=== PATIENT | female | born 1950 | race Caucasian/White ===

== ENCOUNTER 2016-12-21 17:40 | Inpatient (IN) | payer OTHER, MEDICARE ==
[~2016-12-21] VITALS: Ht 167.6 cm; Wt 78.2 kg
[2016-12-21] MEDS ORDERED: IOHEXOL 350 MG/ML 10 ML VIAL (for RAD DIAG) IVCONTRAST ONE (17:41)
[2016-12-21 17:53] VITALS: O2SAT 96
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
[2016-12-21 18:05] LABS: AUTOMATED NEUTROPHIL # 8.9 TH/MM3 (1.8-7.7); BASOPHIL # 0.1 TH/MM3 (0-0.2); BASOPHIL % 0.4 % (0.0-2.0); EOSINOPHIL # 0.1 TH/MM3 (0-0.4); EOSINOPHIL % 0.9 % (0.0-4.0); HEMATOCRIT 41.9 % (35.0-46.0); HEMO FLAGS DIFF FINAL; LYMPH % 30.4 % (9.0-44.0); LYMPHOCYTE # 4.6 TH/MM3 (1.0-4.8); MEAN CELL VOLUME 89.6 FL (80.0-100.0); MEAN CORPUSCULAR HEMOGLOBIN 29.5 PG (27.0-34.0); MEAN CORPUSCULAR HGB CONC 32.9 % (32.0-36.0); MONO % 8.8 % (0.0-8.0); NEUT % 59.5 % (16.0-70.0); PLATELET COUNT 244 TH/MM3 (150-450); RED BLOOD COUNT 4.68 MIL/MM3 (4.00-5.30); RED CELL DISTRIBUTION WIDTH 13.9 % (11.6-17.2)
[2016-12-21 18:09] LABS: I-STAT POTASSIUM 3.8 MMOL/L (3.5-4.9)
[2016-12-21 18:15] LABS: APTT (PATIENT) 23.8 SEC (24.3-30.1); PROTHROMBIN TIME - PATIENT 10.7 SEC (9.8-11.6)
[2016-12-21 18:30] VITALS: BP 128/60; PULSE 95; RESP 20; O2SAT 98
[2016-12-21] MEDS ORDERED: HYDROmorphone HCL PF 1 MG/ML VIAL IVP PRN ×2 (18:30)
[2016-12-21] MEDS ORDERED: CHLORHEXIDINE GLUCONATE 2 % 1 PACK (2 CLOTHS) TOP PRN (18:30)
[2016-12-21] MEDS ORDERED: MISCELLANEOUS NURSING INFORMATION XX SCH (18:30)
[2016-12-21] MEDS ORDERED: HYDROmorphone HCL PF 1 MG/ML VIAL IV PUSH ONE (18:30)
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
[2016-12-21 19:54] VITALS: BP 128/60; PULSE 100; RESP 18; O2SAT 100
[2016-12-21 20:25] VITALS: BP 140/79; PULSE 112; RESP 18; TEMP 99.9; O2SAT 97
[2016-12-21] MEDS: MAGNESIUM HYDROXIDE SUSP 30 ML CUP PO SCH (21:00)
[2016-12-21] MEDS: LACTATED RINGER'S 1000 ML INJ 1,000 ML IV SCH (21:31)
[2016-12-21] MEDS: DOCUSATE SODIUM 100 MG CAP PO SCH (21:38)
[2016-12-21] MEDS: METHOCARBAMOL 500 MG TAB PO SCH (21:38)
[2016-12-21] MEDS: FAMOTIDINE 20 MG TAB PO SCH (21:38)
[2016-12-21] MEDS: LIDOCAINE HCL 5% PATCH T-DERMAL SCH (21:41)
[2016-12-22 00:20] VITALS: BP 117/66; PULSE 90; RESP 18; TEMP 99.4; O2SAT 98
[2016-12-22 03:35] VITALS: BP 137/79; PULSE 87; RESP 17; TEMP 96.7; O2SAT 98
[2016-12-22] MEDS ORDERED: CHLORHEXIDINE GLUCONATE 2 % 1 PACK (2 CLOTHS) TOP SCH (04:00)
[2016-12-22] MEDS: METHOCARBAMOL 500 MG TAB PO SCH ×3 (05:49→21:06)
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
[2016-12-22 07:39] VITALS: BP 110/69; PULSE 80; RESP 18; TEMP 96.7; O2SAT 95
[2016-12-22] MEDS: LACTATED RINGER'S 1000 ML INJ 1,000 ML IV SCH ×2 (08:03→20:06)
[2016-12-22] MEDS: DOCUSATE SODIUM 100 MG CAP PO SCH ×2 (08:27→21:06)
[2016-12-22] MEDS: REMOVE OLD LIDOCAINE PATCH T-DERMAL SCH (08:29)
[2016-12-22] MEDS ORDERED: MAGN400S PO (08:41)
[2016-12-22] MEDS ORDERED: DOCU1CAP39 PO (08:41)
[2016-12-22 08:52] LABS: AUTOMATED NEUTROPHIL # 5.6 TH/MM3 (1.8-7.7); BASOPHIL % 0.3 % (0.0-2.0); EOSINOPHIL # 0.1 TH/MM3 (0-0.4); EOSINOPHIL % 0.7 % (0.0-4.0); HEMATOCRIT 39.8 % (35.0-46.0); HEMO FLAGS DIFF FINAL; LYMPH % 30.3 % (9.0-44.0); LYMPHOCYTE # 2.9 TH/MM3 (1.0-4.8); MEAN CELL VOLUME 89.5 FL (80.0-100.0); MEAN CORPUSCULAR HEMOGLOBIN 29.7 PG (27.0-34.0); MEAN CORPUSCULAR HGB CONC 33.1 % (32.0-36.0); MONO % 11.4 % (0.0-8.0); NEUT % 57.3 % (16.0-70.0); PLATELET COUNT 210 TH/MM3 (150-450); RED BLOOD COUNT 4.44 MIL/MM3 (4.00-5.30); RED CELL DISTRIBUTION WIDTH 14.3 % (11.6-17.2); WHITE BLOOD COUNT 9.7 TH/MM3 (4.0-11.0)
[2016-12-22 09:12] LABS: ANION GAP 8 MEQ/L (5-15); AST (GOT) 31 U/L (15-37); BICARBONATE 24.4 MEQ/L (21.0-32.0); BLOOD UREA NITROGEN 7 MG/DL (7-18); CHLORIDE 105 MEQ/L (98-107); GLOMERULAR FILTRATION RATE 44 ML/MIN (>89); POTASSIUM 3.8 MEQ/L (3.5-5.1); SODIUM (NA) 137 MEQ/L (136-145)
[2016-12-22 09:14] LABS: ALT (GPT) 19 U/L (10-53)
[2016-12-22 09:16] LABS: ALKALINE PHOSPHATASE 93 U/L (45-117); TOTAL BILIRUBIN ADULT 0.5 MG/DL (0.2-1.0)
[2016-12-22] MEDS ORDERED: oxyCODONE/ACETAMINOPHEN 5 MG/325 MG TAB PO PRN (11:30)
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
[2016-12-22 11:46] VITALS: BP 114/79; PULSE 74; RESP 18; TEMP 97.5; O2SAT 94
[2016-12-22] MEDS: oxyCODONE/ACETAMINOPHEN 10 MG/325 MG TAB PO PRN ×2 (12:29→19:14)
[2016-12-22] MEDS: GABAPENTIN 300 MG CAP PO SCH ×2 (12:29→17:40)
[2016-12-22] MEDS: ONDANSETRON HCL 4 MG/2 ML VIAL IV PUSH PRN ×2 (14:56→21:01)
[2016-12-22 16:00] VITALS: BP 94/53; PULSE 80; RESP 18; TEMP 96.1; O2SAT 93
[2016-12-22] MEDS ORDERED: NITR1SUB3 SL (16:41)
[2016-12-22] MEDS ORDERED: TIZA4CAP3 PO (16:43)
[2016-12-22] MEDS ORDERED: DIPH25CA PO (16:44)
[2016-12-22 20:00] VITALS: BP 107/79; PULSE 81; RESP 16; TEMP 97.7; O2SAT 97
[2016-12-22] MEDS ORDERED: traZODone HCL 50 MG TAB PO SCH (21:00)
[2016-12-22] MEDS: FAMOTIDINE 20 MG TAB PO SCH (21:06)
[2016-12-22] MEDS: LIDOCAINE HCL 5% PATCH T-DERMAL SCH (21:06)
[2016-12-22] MEDS: MAGNESIUM HYDROXIDE SUSP 30 ML CUP PO SCH (21:53)
[2016-12-23] VITALS: BP 95/41; PULSE 79; RESP 18; TEMP 98.7; O2SAT 95
[2016-12-23 04:00] VITALS: BP 107/59; PULSE 65; RESP 18; TEMP 96; O2SAT 92
[2016-12-23] MEDS: METHOCARBAMOL 500 MG TAB PO SCH ×2 (06:28→13:17)
[2016-12-23] MEDS: LACTATED RINGER'S 1000 ML INJ 1,000 ML IV SCH (08:09)
[2016-12-23 10:07] VITALS: BP 109/57; PULSE 75; RESP 20; TEMP 96.3; O2SAT 91
[2016-12-23] MEDS: DOCUSATE SODIUM 100 MG CAP PO SCH (10:13)
[2016-12-23] MEDS: GABAPENTIN 300 MG CAP PO SCH ×2 (10:16→13:17)
[2016-12-23] MEDS: REMOVE OLD LIDOCAINE PATCH T-DERMAL SCH (10:18)
[2016-12-23] MEDS: oxyCODONE/ACETAMINOPHEN 10 MG/325 MG TAB PO PRN (10:20)
[2016-12-23] MEDS ORDERED: OXYC1TAB63 PO (11:55)
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
[2016-12-23] MEDS: ONDANSETRON HCL 4 MG/2 ML VIAL IV PUSH PRN (13:17)
[2016-12-23 13:36] VITALS: BP 88/54; PULSE 77; RESP 20; TEMP 97.1; O2SAT 94
== END 2016-12-23 15:05 | disposition home or self-care (01) | DRG 605 ==
LOC: NEPI 17:40 → NEDA 18:47 → EDBD 18:47 → N06B 20:04
PROVIDERS: ADMIT Surgery Trauma Surgery; ATTEND Surgery Trauma Surgery
DX: S20.219A Contusion of unspecified front wall of thorax, initial encounter (principal); M54.30 Sciatica, unspecified side; S30.1XXA Contusion of abdominal wall, initial encounter; V89.2XXA Person injured in unspecified motor-vehicle accident, traffic, initial encounter; Y92.410 Unspecified street and highway as the place of occurrence of the external cause
CPT/HCPCS: 70450; 71010; 71260; 72125; 72170; 74177; 80053; 82435; 82550; 82565; 82947; 84132; 84295; 84484; 84520; 85025; 85610; 85730; 86850; 86900; 86901; 94150; 94640; 94667; 94668; 96374; A0431-QM-SH; A0436-QM-SH; J1170; J2405; J3010; J7120; Q9967